=== PATIENT | female | born 2000 | race Caucasian/White ===

== ENCOUNTER 2025-02-06 11:49 | Emergency (ER) | payer OTHER, BC, SELFPAY ==
[2025-02-06 12:12] VITALS: BP 139/95; PULSE 86; RESP 16; TEMP 36.5; O2SAT 100
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
== END 2025-02-06 12:45 | disposition home or self-care (01) ==
DX: H93.8X1 Other specified disorders of right ear (principal); M25.521 Pain in right elbow; M54.50 Low back pain, unspecified; G44.319 Acute post-traumatic headache, not intractable; V43.52XA Car driver injured in collision with other type car in traffic accident, initial encounter
CPT/HCPCS: 99202; G0463